=== PATIENT | male | born 1940 | race Caucasian/White ===

== ENCOUNTER 2018-12-23 15:22 | Inpatient (IN) | payer BC ==
[~2018-12-23] VITALS: Ht 167.6 cm; Wt 79.4 kg
--- NOTE | 2018-12-23 15:18 | Emergency Room Report ---
History of Present Illness General Chief Complaint: General Complaint Source: Patient, EMS Present Illness HPI Patient is a 78-year-old male brought in by EMS after decreased blood sugar. Patient was noted to have slightly low blood pressure by EMS. Patient was noted to have prior history of hypertension as well as type 2 diabetes. He had been noted to have some recent lower extremity infection. Patient denies any current symptoms. He was noted to have atrial fibrillation on EKG with EMS. Patient denies any current complaints. Patient was sent in from a board and care. Allergies: Coded Allergies: No Known Allergies (Unverified , 12/23/18) Patient History Past Medical History: see triage record Reviewed Nursing Documentation: PMH: Agreed; PSxH: Agreed Review of Systems All Other Systems: negative except mentioned in HPI Physical Exam Vital Signs Date Time Temp Pulse Resp B/P (MAP) Pulse Ox O2 Delivery O2 Flow Rate FiO2 12/23/18 15:10 98.1 110 18 118/72 100 Room Air Sp02 EP Interpretation: reviewed, normal General Appearance: normal inspection, well appearing, no apparent distress, alert, GCS 15 Head: atraumatic ENT: normal ENT inspection, hearing grossly normal, normal voice Neck: normal inspection, full range of motion, supple, no bony tend Respiratory: normal inspection, lungs clear, normal breath sounds, no respiratory distress, no retraction, no wheezing Cardiovascular #1: regular rate, rhythm, no edema Gastrointestinal: normal inspection, normal bowel sounds, non tender, soft, no guarding, no hernia Genitourinary: no CVA tenderness Musculoskeletal: normal inspection, back normal, normal range of motion Neurologic: normal inspection, alert, oriented x3, responsive, speech normal Psychiatric: normal inspection, judgement/insight normal, mood/affect normal Skin: no rash, other - left leg erythema,slight edema Medical Decision Making Diagnostic Impression: Primary Impression: Atrial fibrillation with RVR Additional Impressions: Urinary tract infection Pneumonia CHF (congestive heart failure) ER Course Patient presented for generalized weakness. Differential diagnosis included was not limited to anemia, urinary tract infection, electrolyte abnormality, hypothyroidism, myocardial infarction, myasthenia gravis, dehydration, among others. Because of complexity of patient's case laboratory testing and imaging studies were ordered. EKG interpreted by me showed atrial fibrillation with a rate of [address] or T wave changes.Patient was given IV antibiotics as well as Lasix. He was given IV digoxin due to atrial fibrillation with rapid ventricular response. Dr. Nagel was contacted for inpatient management due to primary physician. Labs Test 12/23/18 15:55 12/23/18 16:30 White Blood Count 9.5 K/UL (4.8-10.8) Red Blood Count 3.85 M/UL (4.70-6.10) Hemoglobin 11.3 G/DL (14.2-18.0) Hematocrit 33.6 % (42.0-52.0) Mean Corpuscular Volume 87 FL (80-99) Mean Corpuscular Hemoglobin 29.5 PG (27.0-31.0) Mean Corpuscular Hemoglobin Concent 33.7 G/DL (32.0-36.0) Red Cell Distribution Width 13.6 % (11.6-14.8) Platelet Count 261 K/UL (150-450) Mean Platelet Volume 5.7 FL (6.5-10.1) Neutrophils (%) (Auto) 70.1 % (45.0-75.0) Lymphocytes (%) (Auto) 19.0 % (20.0-45.0) Monocytes (%) (Auto) 8.2 % (1.0-10.0) Eosinophils (%) (Auto) 1.9 % (0.0-3.0) Basophils (%) (Auto) 0.8 % (0.0-2.0) Sodium Level 141 MMOL/L (136-145) Potassium Level 3.0 MMOL/L (3.5-5.1) Chloride Level 97 MMOL/L (98-107) Carbon Dioxide Level 39 MMOL/L (21-32) Anion Gap 5 mmol/L (5-15) Blood Urea Nitrogen 10 mg/dL (7-18) Creatinine 1.1 MG/DL (0.55-1.30) Estimat Glomerular Filtration Rate mL/min (>60) Glucose Level 138 MG/DL (74-106) Lactic Acid Level 1.40 mmol/L (0.4-2.0) Calcium Level 8.4 MG/DL (8.5-10.1) Phosphorus Level 3.8 MG/DL (2.5-4.9) Magnesium Level 1.9 MG/DL (1.8-2.4) Total Bilirubin 0.5 MG/DL (0.2-1.0) Aspartate Amino Transf (AST/SGOT) 35 U/L (15-37) Alanine Aminotransferase (ALT/SGPT) 28 U/L (12-78) Alkaline Phosphatase 77 U/L (46-116) Total Creatine Kinase 232 U/L (26-308) Creatine Kinase MB 3.2 NG/ML (0.0-3.6) Creatine Kinase MB Relative Index 1.3 Troponin I 0.000 ng/mL (0.000-0.056) Pro-B-Type Natriuretic Peptide 1730 pg/mL (0-125) Total Protein 7.3 G/DL (6.4-8.2) Albumin 2.8 G/DL (3.4-5.0) Globulin 4.5 g/dL Albumin/Globulin Ratio 0.6 (1.0-2.7) Urine Color [place] Urine Appearance Clear Urine pH 9 (4.5-8.0) Urine Specific [place] 1.010 (1.005-1.035) Urine Protein 2+ (NEGATIVE) Urine Glucose (UA) Negative (NEGATIVE) Urine Ketones Negative (NEGATIVE) Urine Blood Negative (NEGATIVE) Urine Nitrite Negative (NEGATIVE) Urine Bilirubin Negative (NEGATIVE) Urine Ictotest Negative (NEGATIVE) Urine Urobilinogen 1 MG/DL (0.0-1.0) Urine Leukocyte Esterase 1+ (NEGATIVE) Urine RBC 0 /HPF (0 - 0) Urine WBC 5-10 /HPF (0 - 0) Urine Squamous Epithelial Cells Occasional /LPF Urine Bacteria Few /HPF (NONE) Urine Mucus Moderate /LPF (NONE/OCC) EKG Diagnostic Results Rate: tachycardiac - 114. Rhythm: other - afib ST Segments: no acute changes Last Vital Signs Date Time Temp Pulse Resp B/P (MAP) Pulse Ox O2 Delivery O2 Flow Rate FiO2 12/23/18 15:10 98.1 110 18 118/72 100 Room Air Status: improved Disposition: ADMITTED INPATIENT Condition: Stable Siva Onofre MD Dec 23, 2018 15:18
[2018-12-23 15:30] VITALS: BP 118/72
--- NOTE | 2018-12-23 15:30 | NUR ---
ED Nurse Note: Pt brought in to ER from [facility] due to general weakness. per EMS pt's BS went down to 81 mg/dl yesterday and demonstrated general weakness since yesterday. pt aao x 4 and able to pivot weight to transfer from rney to bed. calm and cooperative. pt is at room air and skin clean and intact. Rt toes all amputated and 2 of Lt toes were amputated. site clean and intact. pt urinated at urinal standing up.
--- NOTE | 2018-12-23 15:40 | NUR ---
ED Nurse Note: Pt reported improved pain 5/10 but blood pressure still high 210/92. ERMD made aware.
--- NOTE | 2018-12-23 15:40 | NUR ---
Note joan in EDM - 12/23/18 at 1554 by [email or web address] ED Nurse Note: Pt reported improved pain 01/26 but blood pressure still high 210/92. ANGELA made aware.
--- NOTE | 2018-12-23 15:56 | Diagnostic Imaging Report ---
EXAM: XR Chest, 1 View CLINICAL HISTORY: SOB TECHNIQUE: Frontal view of the chest. COMPARISON: No relevant prior studies available. FINDINGS: Lungs: Patchy infiltrates and irregular opacities bilaterally. Coexisting pleural disease/pleural calcification not excluded. Pleural space: Unremarkable. No pneumothorax. Heart: Large cardiac silhouette. Mediastinum: Unremarkable. Bones/joints: No acute fracture. IMPRESSION: Patchy infiltrates and irregular opacities bilaterally. Coexisting pleural disease/pleural calcification not excluded.
[2018-12-23] MEDS ORDERED: Cefepime HCl 1 GM in D5W 55 ML IVPB ONE (16:15)
[2018-12-23 16:22] LABS: BASOPHILS % (AUTO) 0.8 % (0.0-2.0); EOSINOPHILS % (AUTO) 1.9 % (0.0-3.0); HEMATOCRIT 33.6 % (42.0-52.0); HEMOGLOBIN 11.3 G/DL (14.2-18.0); MEAN CORPUSCULAR VOLUME 87 FL (80-99); MONOCYTES % (AUTO) 8.2 % (1.0-10.0); NEUTROPHILS % (AUTO) 70.1 % (45.0-75.0); PLATELET COUNT 261 K/UL (150-450); RED BLOOD COUNT 3.85 M/UL (4.70-6.10); RED CELL DISTRIBUTION WIDTH 13.6 % (11.6-14.8); WHITE BLOOD COUNT 9.5 K/UL (4.8-10.8)
[2018-12-23 16:26] LABS: ANION GAP 5 mmol/L (5-15); BLOOD UREA NITROGEN 10 mg/dL (7-18); CALCIUM 8.4 MG/DL (8.5-10.1); CARBON DIOXIDE 39 MMOL/L (21-32); CHLORIDE 97 MMOL/L (98-107); CREATININE 1.1 MG/DL (0.55-1.30); SODIUM 141 MMOL/L (136-145)
[2018-12-23] MEDS ORDERED: Digoxin 0.5mg/2ml Inj IVP ONE (16:30)
[2018-12-23 16:39] LABS: ALANINE AMINOTRANSFERASE 28 U/L (12-78); ALBUMIN 2.8 G/DL (3.4-5.0); ALBUMIN/GLOBULIN RATIO 0.6 (1.0-2.7); ALKALINE PHOSPHATASE 77 U/L (46-116); ASPARTATE AMINO TRANSFERASE 35 U/L (15-37); BILIRUBIN,TOTAL 0.5 MG/DL (0.2-1.0); CKMB 3.2 NG/ML (0.0-3.6); CREATINE KINASE 232 U/L (26-308); PHOSPHORUS 3.8 MG/DL (2.5-4.9)
[2018-12-23 16:47] LABS: APPEARANCE,URINE CLEAR; BILIRUBIN, URINE NEGATIVE (NEGATIVE); COLOR,URINE AMBER; GLUCOSE, URINE (UA) NEGATIVE (NEGATIVE); KETONES,URINE NEGATIVE (NEGATIVE); LEUKOCYTE ESTERASE ,URINE 1+ (NEGATIVE); NITRITE,URINE NEGATIVE (NEGATIVE); PH,URINE 9 (4.5-8.0); PROTEIN,URINE 2+ (NEGATIVE); UROBILINOGEN,URINE 1 MG/DL (0.0-1.0)
[2018-12-23 17:30] VITALS: BP 107/79
[2018-12-23] MEDS ORDERED: LOSARTAN POTAS100 MG ORAL (18:02)
[2018-12-23] MEDS ORDERED: OMEGA-3 ACID ETH1 GM PO (18:02)
[2018-12-23] MEDS ORDERED: CLOPIDOGREL75 MG ORAL (18:02)
[2018-12-23] MEDS ORDERED: FAMOTIDINE20 MG ORAL (18:02)
[2018-12-23] MEDS ORDERED: AMLODIPINE BESYL5 MG ORAL (18:02)
[2018-12-23] MEDS ORDERED: DOCUSATE SODIU100 MG ORAL (18:02)
[2018-12-23] MEDS ORDERED: GLUCAGON EMERGEN1 MG IJ (18:02)
[2018-12-23] MEDS ORDERED: LEVOXYL100 MCG ORAL (18:02)
[2018-12-23] MEDS ORDERED: KLONOPIN1 MG ORAL (18:02)
[2018-12-23] MEDS ORDERED: TRAZODONE HCL100 MG ORAL (18:02)
[2018-12-23] MEDS ORDERED: HUMALOG100 UNIT/3 SUBQ ×2 (18:02)
[2018-12-23] MEDS ORDERED: ATORVASTATIN CA20 MG ORAL (18:02)
[2018-12-23] MEDS ORDERED: GABAPENTIN300 MG ORAL (18:02)
[2018-12-23] MEDS ORDERED: METFORMIN HCL1000 M2 ORAL (18:02)
[2018-12-23] MEDS ORDERED: LORATADINE10 M2 PO (18:02)
[2018-12-23] MEDS ORDERED: FLOMAX0.4 MG ORAL (18:02)
[2018-12-23] MEDS ORDERED: NORCO 5-325 TA1 EACH ORAL (18:02)
[2018-12-23] MEDS ORDERED: PAROXETINE HCL20 MG PO (18:02)
[2018-12-23] MEDS ORDERED: LANTUS SOL100 UNIT/1 SUBQ (18:02)
[2018-12-23] MEDS ORDERED: BANOPHEN25 MG PO (18:02)
--- NOTE | 2018-12-23 18:50 | NUR ---
ED Nurse Note: Started oxygen at 4L/min. RA 90%, at 4L/min 94%.
--- NOTE | 2018-12-23 19:06 | NUR ---
HAND-OFF: Report given to HARINDER Oliver. report will be given after accepting doctor assgined. belonging list and swabs done.
--- NOTE | 2018-12-23 19:15 | NUR ---
ED Nurse Note: received report from HARINDER Ma and assumed care, pt resting at this time, attempted giving report to HARINDER Fleming, receiving Rn unable to take report, will try again.
[2018-12-23 19:17] VITALS: BP_SYST 110; BP_SYST 99; BP_DIAS 59; BP_DIAS 73
--- NOTE | 2018-12-23 19:58 | NUR ---
ED Nurse Note: PT O2SAT 88%, ERMD NOTIFIED REGARDING PT'S CONDITION, NO SX RESP DISTRESS AT THIS TIME, CONTINUE O2=4L/MIN VIA NC.
--- NOTE | 2018-12-23 20:03 | NUR ---
ED Nurse Note: REPORT GIVEN TO RN NADINE, PT TRANSFERRING TO TELE FLOOR.
[2018-12-23 20:04] VITALS: BP 110/73
[2018-12-23] MEDS ORDERED: Milk of Magnesia 30ml Ud ORAL PRN (20:15)
--- NOTE | 2018-12-23 20:58 | NUR ---
ED Nurse Note: PT TRANSFERRED TO TELE, ALL BELONGINGS SENT W/ PT, VSS, SINUS TACH ON MARKETING RESEARCH ANALYST, ENDORSED CARE TO ACCESS SERVICES LIBRARIAN NADINE.
[2018-12-23 21:00] VITALS: BP 106/72
[2018-12-23] MEDS ORDERED: Nitroglycerin Subl 0.4mg tab SL PRN (21:00)
[2018-12-23] MEDS ORDERED: Aspirin Baby 81mg ORAL SCH (21:00)
[2018-12-23] MEDS: Levemir Flexpen SUBQ SCH (21:00)
--- NOTE | 2018-12-23 21:45 | NUR ---
Report received from HARINDER Dutton. Patient is in stable condition lying comfortably in bed. Belongings verified and playground monitor applied. Bed in the lowest position, bed brakes engaged, side rails up x3 and call light within reach.
[2018-12-23] MEDS: TraZODone 100mg tab ORAL SCH (23:07)
[2018-12-23] MEDS: Atorvastatin 20mg tab ORAL SCH (23:09)
[2018-12-23] MEDS: Metoprolol 25mg tab ORAL SCH (23:15)
[2018-12-23] MEDS: Heparin 5000 units/ml inj SUBQ SCH (23:15)
[2018-12-24] VITALS (7 sets, daily range): BP systolic 97–155; BP diastolic 60–100
[2018-12-24] MEDS ORDERED: cefTRIAXone 1 GM in D5W 55 ML IVPB SCH (01:45)
[2018-12-24] MEDS: HYDROcodone/Acetamin 5/325 tab ORAL SCH ×4 (06:00→18:46)
--- NOTE | 2018-12-24 07:40 | NUR ---
HAND-OFF: Report given to HARINDER Tobar.
[2018-12-24 07:57] LABS: EOSINOPHILS % (AUTO) 2.1 % (0.0-3.0); HEMATOCRIT 40.3 % (42.0-52.0); HEMOGLOBIN 12.9 G/DL (14.2-18.0); LYMPHOCYTES % (AUTO) 25.8 % (20.0-45.0); MEAN CORPUSCULAR VOLUME 91 FL (80-99); MONOCYTES % (AUTO) 8.8 % (1.0-10.0); NEUTROPHILS % (AUTO) 62.3 % (45.0-75.0); PLATELET COUNT 308 K/UL (150-450); RED BLOOD COUNT 4.44 M/UL (4.70-6.10); WHITE BLOOD COUNT 9.1 K/UL (4.8-10.8)
[2018-12-24 08:11] LABS: ANION GAP 4 mmol/L (5-15); BLOOD UREA NITROGEN 10 mg/dL (7-18); CALCIUM 8.9 MG/DL (8.5-10.1); CARBON DIOXIDE 36 MMOL/L (21-32); CHLORIDE 99 MMOL/L (98-107); CREATININE 1.1 MG/DL (0.55-1.30); POTASSIUM 4.2 MMOL/L (3.5-5.1); SODIUM 138 MMOL/L (136-145)
--- NOTE | 2018-12-24 08:11 | NUR ---
NURSE NOTES: Received report from Yennifer PIZANO. Pt just finished breakfast and talkative. Pt on library monitor no signs of distress at this time. Bed locked and in lowest position. Call light right next to pt. Will continue plan of care.
[2018-12-24] MEDS: PARoxetine 20mg tab ORAL SCH (09:00)
[2018-12-24] MEDS: Losartan 50mg tab ORAL SCH (10:38)
[2018-12-24] MEDS: Docusate 100mg cap ORAL SCH ×2 (10:38→18:44)
[2018-12-24] MEDS: Aspirin Baby 81mg ORAL SCH (10:38)
[2018-12-24] MEDS: Tamsulosin 0.4mg cap ORAL SCH (10:39)
[2018-12-24] MEDS: Metoprolol 25mg tab ORAL SCH ×2 (10:40→20:24)
[2018-12-24] MEDS: Heparin 5000 units/ml inj SUBQ SCH (10:42)
[2018-12-24] MEDS ORDERED: Azithromycin 250mg tab ORAL SCH (12:30)
--- NOTE | 2018-12-24 13:14 | NUR ---
NURSE NOTES: vancomycin not in pyxis. Called pharmacy
[2018-12-24] MEDS: Eliquis 2.5mg tablet ORAL SCH ×2 (13:23→18:45)
--- NOTE | 2018-12-24 13:42 | NUR ---
confirmed with trish Granados, that the following meds need to be held until further notice: (amlodipine, benadryl, Gabapentin, lantus, loratidine, metformin, and paxil). Also ok to give Digoxin and rocephin and heparin as well as continuing IV antibiotics from the ER.
[2018-12-24] MEDS: Vancomycin 1.5gm Premix IVPB SCH (14:29)
--- NOTE | 2018-12-24 16:43 | NUR ---
CASE MANAGEMENT: REVIEW 78/M [facility]Huber [facility] CC: HYPOGLYCEMIA SI: A-FIB . PNA . CHF. UTI T 99.3 HR 120 RR 22 BP 157/92 SAT 92% NC/4L K 3.0 BNP 1730 IS: CEFEPIME IV X1 DIGOXIN IV X1 K-DUR PO X1 LASIX IV X1 FLAGYL IV X1 NS IVF BOLUS X1 PATIENT ADMITTED TO TELEMETRY UNIT 12/23/2018 [facility]
--- NOTE | 2018-12-24 16:45 | History and Physical Report ---
DATE OF ADMISSION: 12/23/2018 CHIEF COMPLAINT AND REASON FOR HOSPITALIZATION: The patient admitted with hypoglycemia, pulmonary infiltrates, atrial fibrillation with rapid ventricular response. HISTORY OF PRESENT ILLNESS: I am seeing the patient on behalf of Dr. Mendoza who is off today. He was apparently brought to the hospital by EMS after hypoglycemic episode and transient hypotension by the EMS. The patient has a history of type 2 diabetes, on insulin and peripheral vascular disease, status post amputation, hypertension. He walks with a walker. He is found to have patchy infiltrates on chest x-ray, possible CHF, atrial fibrillation with rapid ventricular response, and a hypoglycemic episode. He is only a fair historian. ALLERGIES: None known. MEDICATIONS: At the facility include Klonopin 1 mg b.i.d., gabapentin 300 mg b.i.d., tamsulosin 0.4 mg at bedtime, Plavix 75 mg daily, famotidine 20 mg daily, levothyroxine 100 mcg daily, losartan 100 mg daily, metformin 1000 mg daily, trazodone 100 mg at bedtime, Paxil 20 mg daily, Lipitor 20 mg daily, amlodipine 5 mg daily, [place]-3 1 g b.i.d., Claritin 10 mg daily, Banophen 25 mg daily, [place] 5 every 6 hours, Humalog 10 units in the morning and sliding scale before meals, Lantus 40 units at bedtime, glucagon p.r.n., BSS 100 mg b.i.d. 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 HABITS: He smoked and quit many years ago. No alcohol or drugs. SOCIAL HISTORY: He is single. He worked in [employer]. Surgeries include amputations as noted above and left knee surgery as noted above. SYSTEM REVIEW: HEAD, EYES, EARS, NOSE, AND THROAT: He is legally blind, but has some vision. Hearing is good. ENDOCRINE: Diabetes and hypothyroidism as above. PULMONARY: No known asthma or TB. Mild dyspnea on exertion. CARDIAC: No definite IN or angina. It is not clear if he has had atrial fibrillation chronically or this is acute. GASTROINTESTINAL: No GI bleeding or ulcer. GENITOURINARY: No dysuria, hematuria, or kidney stones. No history of prostate problems. NEUROLOGIC: No CVA or syncope. MUSCULOSKELETAL: He uses a walker for stability. PHYSICAL EXAMINATION: GENERAL: The patient is an alert man, sitting at the edge of bed. VITAL SIGNS: Temperature 98.2, pulse 108, respirations 19, blood pressure 145/90. HEAD, EYES, EARS, NOSE, THROAT: He has poor vision. Ocular motion intact in all directions. Oral mucosa moist. NECK: No adenopathy or thyroid enlargement. LUNGS: Clear. HEART: Rhythm is atrial fibrillation. I hear no murmur. ABDOMEN: Soft without organomegaly or masses. EXTREMITIES: No edema. Amputation of all toes of the right foot and the second and third toe of the left foot. He has dry scaly skin on both legs and has mild cellulitis on the left lower extremity. NEUROLOGIC: He is alert and oriented. Cranial nerves are intact. No focal findings. PERTINENT LABORATORY DATA: White count 9.1, hemoglobin is 12.9. Electrolytes are significant for CO2 of 39 and 36 with a BUN 10, creatinine 1.1, glucose 138, 153. Lactic acid 1.4. Initial troponin negative. BNP 1730. Albumin is 2.8. Urine shows 2+ proteinuria, 5 to 10 white cells per high-power field. IMPRESSION: 1. Diabetes with episodes of hypoglycemia. 2. Atrial fibrillation with rapid ventricular response. 3. Pulmonary infiltrates, pneumonia versus pleural effusion, CHF. 4. CHF, likely diastolic. 5. Incomplete database. 6. Hypertension with episodes of hypotension recently. 7. Hyperlipidemia. PLAN: The patient's cardiac medications will be adjusted to control his rate and CHF. Diabetes medications will be adjusted. We will start him on appropriate antibiotics for cellulitis and healthcare-acquired pneumonia. His condition is complex and will require several days of hospitalization. Josue Lay M.D. DR: TOI JOB#: [id number] CC:
--- NOTE | 2018-12-24 17:46 | NUR ---
NURSE NOTES: per pharmacy they have tried to get a hold of Dr. Granados in regards to of which antibiotic to use for this pt. Per pharmacy usually Zosyn is not given in combination with Ceftriaxone because they work almost the same. Paged Dr. Coelho as well at 5;30.
--- NOTE | 2018-12-24 17:49 | NUR ---
NURSE NOTES: per [facility] ok to give Addendum: 12/24/18 at 1753 by Ekaterina Jim RN Per May at pharmacy it is ok to run Ceftriaxone late because Zosyn is running now. Pharmacy is still trying to find out if Dr. patiño would like both antibiotics to run since they both work the same.
--- NOTE | 2018-12-24 18:35 | NUR ---
NURSE NOTES: per doctor haroon Nuñez and continue with ceftriaxone.
[2018-12-24] MEDS: cefTRIAXone 1 GM in D5W 55 ML IVPB SCH (18:44)
--- NOTE | 2018-12-24 19:20 | NUR ---
NURSE NOTES: Received patient from HARINDER Tobar. Patient on bed asleep with oxygen via NC at 2L. Cellulities on BLE noted. Redness and dryness. Symes amputation on the right. Two toes amputated on the left. Unsteady but able to stand and ambulate with assistance. Assisted patient to the restroom. Noted have some difficulty voiding but denies pain. Confusion noted with uncooperativeness towards patient care and safety. Reoriented patient. Call light within reach. Bed alarm on.
[2018-12-24] MEDS: TraZODone 100mg tab ORAL SCH (20:24)
[2018-12-24] MEDS: Atorvastatin 20mg tab ORAL SCH (20:24)
[2018-12-24] MEDS: Levemir Flexpen SUBQ SCH (20:31)
[2018-12-24] MEDS ORDERED: Tubing IV Secondary IV ONE (20:37)
[2018-12-24] MEDS ORDERED: NS 500ML ONE (20:37)
--- NOTE | 2018-12-24 20:42 | NUR ---
HAND-OFF: Report given to Rebecca PIZANO.
--- NOTE | 2018-12-24 21:55 | NUR ---
NURSE NOTES: Patient ambulated to the restroom with assistance. Bed alarm on. Patient is confused and tries to get up by himself. AOx2. Skin intact. Not in distress.
--- NOTE | 2018-12-24 23:28 | NUR ---
NURSE NOTES: Patient got out of bed at this time, stated "Where is my dinner?" Explained to patient the time and ambulated to the restroom. Assisted patient along with charge nurse. Patient eventually got agitated and uncooperative. Explained patient to go back to bed for safety. Patient refused [place] 5/325mg at this time stating "it ruining my day to day if I take that pill." Back rub provided to calm patient. VS stable at this time.
--- NOTE | 2018-12-25 02:53 | NUR ---
NURSE NOTES: Specimen for MRSA nares has been collected. Sent to lab.
[2018-12-25 04:00] VITALS: BP 128/76
--- NOTE | 2018-12-25 04:33 | NUR ---
NURSE NOTES: EKG done. Filed in the chart.
--- NOTE | 2018-12-25 04:40 | NUR ---
NURSE NOTES: Patient is confused asking for breakfast at this time. Reoriented patient. Assisted ambulating to the restroom.
--- NOTE | 2018-12-25 05:17 | NUR ---
NURSE NOTES: Patient ambulated to restroom with assistance. Not in distress.
[2018-12-25] MEDS: HYDROcodone/Acetamin 5/325 tab ORAL SCH ×5 (05:40→23:39)
--- NOTE | 2018-12-25 07:23 | NUR ---
HAND-OFF: Report given to HARINDER Tobar.
[2018-12-25 07:58] LABS: BASOPHILS % (AUTO) 0.8 % (0.0-2.0); EOSINOPHILS % (AUTO) 3.5 % (0.0-3.0); HEMATOCRIT 38.1 % (42.0-52.0); HEMOGLOBIN 12.2 G/DL (14.2-18.0); LYMPHOCYTES % (AUTO) 31.4 % (20.0-45.0); MEAN CORPUSCULAR VOLUME 90 FL (80-99); MONOCYTES % (AUTO) 9.8 % (1.0-10.0); NEUTROPHILS % (AUTO) 54.6 % (45.0-75.0); PLATELET COUNT 252 K/UL (150-450); RED BLOOD COUNT 4.22 M/UL (4.70-6.10); RED CELL DISTRIBUTION WIDTH 14.1 % (11.6-14.8); WHITE BLOOD COUNT 6.3 K/UL (4.8-10.8)
--- NOTE | 2018-12-25 07:58 | NUR ---
NURSE NOTES: Received report from Rebecca PIZANO, pt has been very active all night. Pt is now eating breakfast in bed on security monitor with no signs of distress. Bed in lowest position locked. call light right next to him.
[2018-12-25 08:00] VITALS: BP 111/53
[2018-12-25 08:29] LABS: ANION GAP 7 mmol/L (5-15); BLOOD UREA NITROGEN 11 mg/dL (7-18); CALCIUM 9.2 MG/DL (8.5-10.1); CARBON DIOXIDE 30 MMOL/L (21-32); CHLORIDE 102 MMOL/L (98-107); POTASSIUM 4.5 MMOL/L (3.5-5.1); SODIUM 139 MMOL/L (136-145)
[2018-12-25] MEDS: PARoxetine 20mg tab ORAL SCH (09:00)
--- NOTE | 2018-12-25 09:03 | Cardiology Progress Note ---
Assessment/Plan Assessment/Plan increase metoprolol to 50 bid, consider to d/c plavix and aspirin and continue eliquis 5 mg bid. thank you Subjective Subjective [id number] Objective Last 24 Hour Vital Signs Date Time Temp Pulse Resp B/P (MAP) Pulse Ox O2 Delivery O2 Flow Rate FiO2 12/25/18 08:00 98.0 75 18 111/53 (72) 100 12/25/18 04:00 98.0 73 19 128/76 (93) 93 12/25/18 03:22 73 12/25/18 00:00 80 12/24/18 23:39 98.1 82 19 137/73 (94) 95 12/24/18 23:28 68 12/24/18 21:00 Nasal Cannula 2.0 12/24/18 20:24 73 115/100 12/24/18 20:00 97.5 73 19 115/100 (105) 95 12/24/18 19:40 73 12/24/18 16:00 98.5 82 20 97/60 (72) 97 12/24/18 16:00 71 12/24/18 13:35 98.2 12/24/18 12:00 103 12/24/18 12:00 99.1 107 20 105/69 (81) 93 12/24/18 10:40 108 145/90 12/24/18 10:39 108 12/24/18 10:38 145/90 Intake and Output 12/24/18 12/25/18 19:00 07:00 Intake Total 240 ml 120 ml Output Total 450 ml 1100 ml Balance -210 ml -980 ml Intake Oral 240 ml 120 ml Output Urine Total 450 ml 1100 ml Laboratory Tests Test 12/25/18 06:18 White Blood Count 6.3 K/UL (4.8-10.8) Red Blood Count 4.22 M/UL (4.70-6.10) L Hemoglobin 12.2 G/DL (14.2-18.0) L Hematocrit 38.1 % (42.0-52.0) L Mean Corpuscular Volume 90 FL (80-99) Mean Corpuscular Hemoglobin 29.0 PG (27.0-31.0) Mean Corpuscular Hemoglobin Concent 32.0 G/DL (32.0-36.0) Red Cell Distribution Width 14.1 % (11.6-14.8) Platelet Count 252 K/UL (150-450) Mean Platelet Volume 5.9 FL (6.5-10.1) L Neutrophils (%) (Auto) 54.6 % (45.0-75.0) Lymphocytes (%) (Auto) 31.4 % (20.0-45.0) Monocytes (%) (Auto) 9.8 % (1.0-10.0) Eosinophils (%) (Auto) 3.5 % (0.0-3.0) H Basophils (%) (Auto) 0.8 % (0.0-2.0) Sodium Level 139 MMOL/L (136-145) Potassium Level 4.5 MMOL/L (3.5-5.1) Chloride Level 102 MMOL/L (98-107) Carbon Dioxide Level 30 MMOL/L (21-32) Anion Gap 7 mmol/L (5-15) Blood Urea Nitrogen 11 mg/dL (7-18) Creatinine 1.0 MG/DL (0.55-1.30) Estimat Glomerular Filtration Rate mL/min (>60) Glucose Level 65 MG/DL (74-106) L Calcium Level 9.2 MG/DL (8.5-10.1) Microbiology Date/Time Source Procedure Growth Status 12/23/18 16:00 Blood Blood Culture - Preliminary NO GROWTH AFTER 24 HOURS Resulted 12/23/18 15:45 Blood Blood Culture - Preliminary NO GROWTH AFTER 24 HOURS Resulted 12/23/18 18:30 Rectum Received Anita Whitt MD Dec 25, 2018 09:03
--- NOTE | 2018-12-25 09:58 | NUR ---
MRI LEFT FOOT COMPLETED.
[2018-12-25 11:20] VITALS: BP 148/86
[2018-12-25] MEDS: Azithromycin 250mg tab ORAL SCH (11:23)
[2018-12-25] MEDS: Metoprolol Tartrate 50mg tab ORAL SCH ×2 (11:24→21:00)
[2018-12-25] MEDS: Eliquis 2.5mg tablet ORAL SCH ×2 (11:24→17:43)
[2018-12-25] MEDS: Tamsulosin 0.4mg cap ORAL SCH (11:25)
[2018-12-25] MEDS: Aspirin Baby 81mg ORAL SCH (11:25)
[2018-12-25] MEDS: Docusate 100mg cap ORAL SCH ×2 (11:25→17:43)
--- NOTE | 2018-12-25 11:43 | NUR ---
pt. 9am med given late pt went down stairs fo MRI of L foot. also Lozartan missing in pyxis, so it was not given
[2018-12-25 12:00] VITALS: BP 109/76
--- NOTE | 2018-12-25 13:26 | Diagnostic Imaging Report ---
Indication: Open wound ball of foot and one fourth toe Technique: Coronal, axial, and sagittal T1 FSE and FSE STIR images obtained of the forefoot Comparison: none Findings: A marker lam the site of a soft tissue ulcer the plantar surface below the heads of the third and fourth metatarsals. Patient is status post amputation of the second and third digits at the level of the metatarsophalangeal joints. There is subtle increased STIR and decreased T1 signal within the second metatarsal shaft. No abnormal marrow signal is seen adjacent to the soft tissue ulcer; the third metatarsal and fourth digit demonstrate normal marrow signal. There is some increased STIR and decreased T1 marrow signal in a somewhat linear configuration involving the medial cuneiform and the navicular. There is mild soft tissue edema involving the first digit the first webspace, and to a slight extent the third webspace. There is also subcutaneous fat edema which is circumferential and there is edema of the tendinous compartments both dorsally and plantar. No discrete fluid collections to suggest abscess demonstrated. A few small gas bubbles are seen in the soft tissues anterior to the second metatarsal head. Impression: Equivocal abnormal T1 and T2 marrow signal involving the shaft of the second metatarsal, raises concern for but is not conclusive for osteomyelitis No other findings to suggest acute osteomyelitis are demonstrated. Abnormal marrow signal in the medial cuneiform and navicular. 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 Otherwise, this raises concern for infection with gas-forming organism Fairly extensive soft tissue edema. This could be related to cellulitis or could be vasogenic in nature. No discrete fluid collection to suggest abscess demonstrated
[2018-12-25] MEDS: Losartan 50mg tab ORAL SCH (13:47)
--- NOTE | 2018-12-25 13:49 | NUR ---
NURSE NOTES: pt refused Losartan.
--- NOTE | 2018-12-25 13:53 | NUR ---
NURSE NOTES: Vancomycin due at 1300 will be given once pt comes back from MRI.
--- NOTE | 2018-12-25 13:58 | NUR ---
ST NOTE: SPEECH/LANGUAGE/COGNITION EVAL RECEIVED SPEECH/LANGUAGE/COGNITION EVAL CHART REVIEWED PRIOR THE EVALUATION PT IS A 78-YEAR-OLD MALE WHO WAS ADMITTED FOR A-FIB AND PNA. PT HAS HISTORY OF DMII, PSYCH(ANXIETY DISORDER AND DEPRESSION), COPD, HTN. PER PT'S ADMISSION X-RAY: PATCHY INFILTRATE AND IRREGULAR OPACITIES BILATERALLY. PLOF: PT RESIDES AT [facility]. SPEECH/LANGUAGE/COGNITION: PT WAS ABLE TO EXPRESS WANTS AND NEEDS VERBALLY. PT ORIENTED X 2, UNABLE TO RECALL THE NAME OF THE HOSPITAL. PT SEEMS HAVING POOR INSIGHT AND SAFE JUDGEMENT; AND ALSO REDUCED SHORT-TERM MEMORY RELATED TO HIS MEDICAL HISTORY. PER PT, HE IS LEGALLY BLINDED, BUT PER NURSING STAFF, PT WAS ABLE TO GO TO BATHROOM BY HIMSELF. SWALLOW SCREENING: THIN LIQUID ONLY PT WAS UNABLE TO PARTICIPATE THE HUNGRY HORSE SWALLOW PROTOCOL. PT ONLY TOOK A SIP OF THIN LIQUIDS MILDLY INCREASED ORAL TRANSIT TIME AND OROPHARYNGEAL TRANSIT TIME, FAIR LARYNGEAL ELEVATION, WET VOCAL QUALITY AND DELAYED COUGH WAS NOTED. RECOMMENDATIONS: 1. CONTINUE FURTHER EVALUATION RE: COGNITION. 2. SWALLOW EVAL AND MODIFIED BARIUM SWALLOW STUDY IF NEEDED. 3. SPEECH THERAPY AND MANAGEMENT. D/W RN, ANH AYERS, ROBBY.
--- NOTE | 2018-12-25 14:30 | NUR ---
CASE MANAGEMENT:REVIEW 12/25/18 SI: A-DIVYA . PNA . CHF. UTI 98.0 117 18 148/86 100% ON RA H/H-12.2/38.1 IS: IV ROCEPHIN Q24 IV VANCOMYCIN Q24 AZITHROMYCIN PO Q24 IV LASIX Q12 LOPRESSOR PO Q12 ELIQUIS PO BID ASA PO QD PLAVIX PO QD DIGOXIN PO QD : TELEMETRY STATUS DCP: FROM [facility]
--- NOTE | 2018-12-25 14:52 | NUR ---
*-* INSURANCE *-* ALL CLINICALS AND REVIEWS HAVE BEEN FAXED TO: [facility] PLEASE FAX THE REVIEW/CLINICAL P- [phone] X [phone] F- [phone]
[2018-12-25] MEDS: Vancomycin 1.5gm Premix IVPB SCH (15:26)
[2018-12-25 16:00] VITALS: BP 101/58
--- NOTE | 2018-12-25 16:15 | Consultation ---
DATE OF CONSULTATION: 12/25/2018 CARDIOLOGY CONSULTATION IDENTIFICATION: This is a 78-year-old male. REASON FOR EVALUATION: Atrial fibrillation. HISTORY OF PRESENT ILLNESS: The patient was brought from [facility] and [facility] with multiple complaints including low blood sugar and he also had an infiltrate on his chest x-ray and atrial fibrillation. The patient has known hypertension, diabetes, and peripheral vascular disease, history of toe amputation. He also has diabetes. He denies shortness of breath. He has depression and other psychiatric illnesses include possible depression and dementia. MEDICATIONS: Reviewed. He is on antibiotics. He is on digoxin, Eliquis, Plavix, and aspirin. HABITS: He says he quit many years ago. There is no alcohol or drug abuse. SOCIAL HISTORY: He lives at a [facility] and [facility]. He is partially dependent. REVIEW OF SYSTEMS: Significant for decreased vision, very poor sleep, paranoid ideations. PHYSICAL EXAMINATION: GENERAL: This is elderly man. He is sitting in bed, does not seem to be in acute distress. VITAL SIGNS: Blood pressure 110/70, heart rate is 100 to 128, temperature normal, oxygen saturation on 2 liters of oxygen is 90%. HEENT: He has slightly deformed pupils, otherwise unremarkable. Neck veins approximately 10 cm. Carotid upstroke is brisk without bruit. LUNGS: He has scattered crackles posteriorly. HEART: Irregular, rapid with accentuated A2. ABDOMEN: Soft and distended. There is no masses palpable. EXTREMITIES: Lower extremities, he has amputation on the right foot transmetatarsal, on the left with one toe and he has some erythema distally of his pretibial area and edema 2+. NEUROLOGIC: He moves all extremities and appeared to have no significant neurologic deficit. LABORATORY AND DIAGNOSTIC DATA: His EKG shows atrial fibrillation, rate was 79, and there is poor R-wave progression in precordial leads. Chest x-ray shows bilateral infiltrates. Blood tests significant for white count 6.3, hemoglobin 12.2, platelets 252. Creatinine is 1. Blood sugar . Urinalysis, possible infection. Chest x-ray, bilateral patchy infiltrate. IMPRESSION AND RECOMMENDATION: Atrial fibrillation, not clear how all the patient has this condition. He seems having pneumonia versus congestive heart failure. Chest x-ray is inconclusive, but is mostly low part of his lungs. He is anticoagulated with Plavix, aspirin, and Eliquis. I am going to ask Dr. Aguilar why he needs to be on triple blood thinners including For the patient's knowledge, he did not have recently any intervention and then he should be just on Eliquis. Troponin was done, it was negative. Also BNP was mildly elevated. His potassium was 3 and then it was replaced. I am going to personally review echo later. The patient's metoprolol is going to be increased and I agree with diuresis at present time. PLAN: 1. Continue current medications plus change him to Eliquis 5 mg b.i.d. 2. We can discontinue aspirin and Plavix. Thank you very much for your consultation. Anita Whitt M.D. DR: Ge JOB#: [id number] CC:
--- NOTE | 2018-12-25 16:23 | General Progress Note ---
Assessment/Plan Assessment/Plan New onset A. Fib - RC. Awaiting Cards. 2D Echo WNL. UTI + PNA - IV Abx. Subjective Allergies: Coded Allergies: No Known Allergies (Unverified , 12/23/18) Subjective No new c/o Objective Last 24 Hour Vital Signs Date Time Temp Pulse Resp B/P (MAP) Pulse Ox O2 Delivery O2 Flow Rate FiO2 12/25/18 11:25 117 12/25/18 11:24 117 148/86 12/25/18 11:20 117 148/86 (106) 12/25/18 08:00 98.0 75 18 111/53 (72) 100 12/25/18 04:00 98.0 73 19 128/76 (93) 93 12/25/18 03:22 73 12/25/18 00:00 80 12/24/18 23:39 98.1 82 19 137/73 (94) 95 12/24/18 23:28 68 12/24/18 21:00 Nasal Cannula 2.0 12/24/18 20:24 73 115/100 12/24/18 20:00 97.5 73 19 115/100 (105) 95 12/24/18 19:40 73 Intake and Output 12/24/18 12/25/18 18:59 06:59 Intake Total 240 ml 120 ml Output Total 450 ml 1100 ml Balance -210 ml -980 ml Intake Oral 240 ml 120 ml Output Urine Total 450 ml 1100 ml Laboratory Tests 12/25/18 06:18: White Blood Count 6.3, Red Blood Count 4.22L, Hemoglobin 12.2L, Hematocrit 38.1L , Mean Corpuscular Volume 90, Mean Corpuscular Hemoglobin 29.0, Mean Corpuscular Hemoglobin Concent 32.0, Red Cell Distribution Width 14.1, Platelet Count 252, Mean Platelet Volume 5.9L, Neutrophils (%) (Auto) 54.6, Lymphocytes ( %) (Auto) 31.4, Monocytes (%) (Auto) 9.8, Eosinophils (%) (Auto) 3.5H, Basophils (%) (Auto) 0.8, Sodium Level 139, Potassium Level 4.5, Chloride Level 102, Carbon Dioxide Level 30, Anion Gap 7, Blood Urea Nitrogen 11, Creatinine 1.0, Estimat Glomerular Filtration Rate , Glucose Level 65L, Calcium Level 9.2 Height (Feet): 5 Height (Inches): 6.00 Weight (Pounds): 176 Objective Confused. Blind CV IRR/IRR. Monitor A. Fib ~70 Lungs CTA Abd SNT. BS + E + Edema Awa Mendoza MD Dec 25, 2018 16:23
--- NOTE | 2018-12-25 18:21 | Diagnostic Imaging Report ---
Indication: Shortness of breath Technique: 2 views of the chest Comparison: Single view chest dated 12/23/2018 Findings: Bilateral dense nodular appearing opacities are again demonstrated, likely representing calcified pleural plaques. There is blunting of the right costophrenic sulcus as well as of the posterior costophrenic sulcus, not clearly evident previously, likely representing a small pleural effusion. There is generalized interstitial prominence. The heart size is borderline enlarged. 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 Other more acute etiology is also possible Suspect new or increased small right pleural effusion. Cardiomegaly
[2018-12-25] MEDS: cefTRIAXone 1 GM in D5W 55 ML IVPB SCH (18:35)
--- NOTE | 2018-12-25 18:47 | Cardiology Report ---
APPROVED REPORT EXAM: Two-dimensional and M-mode echocardiogram with Doppler and color Doppler. INDICATION Atherosclerosis M-Mode DIMENSIONS IVSd1.4 (0.7-1.1cm)Left Atrium (MM)4.5 (1.6-4.0cm) LVDd4.6 (3.5-5.6cm)Aortic Root3.9 (2.0-3.7cm) PWd1.3 (0.7-1.1cm)Aortic Cusp Exc.2.4 (1.5-2.0cm) LVDs2.6 (2.5-4.0cm) PWs1.9 cm Normal left ventricular chamber size, systolic function and wall motion. Left ventricular ejection fraction estimated to be 60 %. Mild left ventricular hypertrophy. Anterior Echo-free space, may be due to pericardial fat or effusion. Mild bi-atrial enlargement. Mild right ventricular enlargement. Mild aortic root dilatation. Focal aortic valve sclerosis with adequate cusp excursion. Mildly thickened mitral valve leaflets with normal excursion. Mild mitral annulus and aortic root calcification. Normal pulmonic valve structure. Normal tricuspid valve structure. IVC dilated at 2.7 cm without physiological collapse, suggestive of increased RA pressure. A color flow and spectral Doppler study was performed and revealed: No aortic insufficiency. Trace mitral regurgitation. Left ventricular diastolic function could not be determined due to A-Fib. Mild tricuspid regurgitation. Tricuspid systolic velocities suggests peak right ventricular systolic pressure of 44 mmHg, consistent with mild pulmonary hypertension. No pulmonic regurgitation present.
--- NOTE | 2018-12-25 19:25 | NUR ---
NURSE NOTES: Received report from Cornelius Jim RN. Pt is resting in RA w/o respiratory distress. Staffs are helping him to ambulate and use restroom but pt is keep asking help, by saying "No body is helping me." Endorsed that Dr. Mendoza discontinued metformin and lantus and levmir is discontinued in eMAR. Current BS is 179. Pt is asking to have sugar and candy. Pt is up and took candy from his belonging and ate it. Will continue to monitor. Called and left message to Dr. Mendoza for BS level and no insulin order, awaiting call back. HOB kept 30 degree. Bed in lowest position and breaks are engaged. Urinal, walker, Call light and side table are w/in reach. Will follow plans of care.
--- NOTE | 2018-12-25 19:38 | Cardiology Report ---
APPROVED REPORT EKG Measurement Heart [id number] Atrial flutter with varible AV block. Low voltage QRS Septal infarct, age undetermined Abnormal ECG
[2018-12-25 20:00] VITALS: BP 101/68
--- NOTE | 2018-12-25 20:50 | NUR ---
NURSE NOTES: Called and left message to Dr. Whitt at regarding BP 101/68 and scheduled med of lasix 20mg, and lopressor 50mg at 2100 in eMAR. Pt is ambulating by himself to use bathroom continuously using his walker. Pt is A&O x2 and was instructed to stay in the bed or call for help for safety but pt is noncompliance. Will continue to monitor. Addendum: 12/25/18 at 2202 by JIMBO NARVAEZ RN Dr. Alireza laureano. Will monitor VS.
[2018-12-25] MEDS: TraZODone 100mg tab ORAL SCH (20:58)
[2018-12-25] MEDS: Atorvastatin 20mg tab ORAL SCH (20:59)
--- NOTE | 2018-12-25 21:31 | NUR ---
HAND-OFF: Report given to Angelica Soni.
--- NOTE | 2018-12-25 21:33 | NUR ---
NURSE NOTES: confirmed with Osei Garcia that the following medications are going to be stopped: Amlodipine, benadryl, gabapentin, Lantus, Loratidine, Metformin, and Plaxil.
[2018-12-26] VITALS: BP 103/64
[2018-12-26 04:00] VITALS: BP 124/98
[2018-12-26] MEDS: HYDROcodone/Acetamin 5/325 tab ORAL SCH ×3 (05:13→13:04)
--- NOTE | 2018-12-26 07:05 | NUR ---
HAND-OFF: Report given to Prachi Flores RN.
--- NOTE | 2018-12-26 07:10 | NUR ---
Received report from Fany/HARINDER, patient is awake, No distress/SOB noted at this time. Bed in low position, Call light within reach. Will continue plan of care.
[2018-12-26 08:00] VITALS: BP 110/89
[2018-12-26] MEDS: Aspirin Baby 81mg ORAL SCH ×2 (09:01→09:03)
[2018-12-26] MEDS: Docusate 100mg cap ORAL SCH ×2 (09:01→09:03)
[2018-12-26] MEDS: Eliquis 2.5mg tablet ORAL SCH ×2 (09:02→09:03)
[2018-12-26] MEDS: Losartan 50mg tab ORAL SCH (09:04)
[2018-12-26] MEDS: Tamsulosin 0.4mg cap ORAL SCH (09:04)
[2018-12-26] MEDS: Metoprolol Tartrate 50mg tab ORAL SCH ×2 (09:04→22:45)
[2018-12-26] MEDS: Azithromycin 250mg tab ORAL SCH (09:05)
--- NOTE | 2018-12-26 09:49 | NUR ---
CASE MANAGEMENT:REVIEW 12/26/18 SI: A-DIVYA . PNA . CHF. UTI 97.9 123 20 110/89 95% ON RA IS: IV ROCEPHIN Q24 IV VANCOMYCIN Q24 AZITHROMYCIN PO Q24 COZAAR PO QD LOPRESSOR PO Q12 ELIQUIS PO BID ASA PO QD KLONOPIN PO BID PLAVIX PO QD DIGOXIN PO QD : TELEMETRY STATUS DCP: FROM [facility]
--- NOTE | 2018-12-26 11:18 | NUR ---
NURSE NOTES: Called Dr. Mendoza, regarding Patient's MRSA Nares Positive, and blood sugar is 195, Patient doesn't have any DM medication.
[2018-12-26 12:00] VITALS: BP 102/64
--- NOTE | 2018-12-26 12:09 | NUR ---
*-* INSURANCE *-* ALL CLINICALS AND REVIEWS HAVE BEEN FAXED TO: [facility] PLEASE FAX THE REVIEW/CLINICAL P- [phone] X [phone] F- [phone]
[2018-12-26] MEDS: Vancomycin 1.5gm Premix IVPB SCH (12:35)
--- NOTE | 2018-12-26 12:51 | General Progress Note ---
Assessment/Plan Assessment/Plan New onset A. Fib - RC. Awaiting Cards. 2D Echo WNL. UTI + PNA - IV Abx. U rine C+s negative CXr no inf. DC Abx DC home. Subjective Allergies: Coded Allergies: No Known Allergies (Unverified , 12/23/18) Subjective No new c/o Objective Last 24 Hour Vital Signs Date Time Temp Pulse Resp B/P (MAP) Pulse Ox O2 Delivery O2 Flow Rate FiO2 12/26/18 12:00 97.5 63 18 102/64 (77) 95 12/26/18 09:04 110/89 12/26/18 09:04 123 110/89 12/26/18 09:04 123 12/26/18 09:01 123 12/26/18 09:00 Room Air 12/26/18 08:00 97.9 123 20 110/89 (96) 95 12/26/18 05:43 98.0 12/26/18 04:00 98.0 100 18 124/98 (107) 96 12/26/18 03:28 118 12/26/18 00:00 98.1 67 18 103/64 (77) 96 12/25/18 23:37 91 12/25/18 21:00 Room Air 12/25/18 21:00 81 101/68 12/25/18 20:00 97.8 81 18 101/68 (79) 99 12/25/18 19:35 80 12/25/18 16:00 74 12/25/18 16:00 98.0 79 18 101/58 (72) 99 Intake and Output 12/25/18 12/26/18 19:00 07:00 Intake Total 500 ml Balance 500 ml Intake Oral 500 ml # Voids 3 Height (Feet): 5 Height (Inches): 6.00 Weight (Pounds): 176 Objective Confused. Blind CV IRR/IRR. Monitor A. Fib ~70 Lungs CTA Abd SNT. BS + E + Edema Awa Mendoza MD Dec 26, 2018 12:51
[2018-12-26] MEDS ORDERED: LIPITOR20 MG ORAL (12:57)
[2018-12-26] MEDS ORDERED: NORCO 5-325 TA1 EACH ORAL (12:57)
[2018-12-26] MEDS ORDERED: CLONAZEPAM1 M2 ORAL (12:57)
[2018-12-26] MEDS ORDERED: METOPROLOL TART50 MG ORAL (12:57)
[2018-12-26] MEDS ORDERED: NITROSTAT0.4 M1 SL (12:57)
[2018-12-26] MEDS ORDERED: DIGOXIN250 MCG ORAL (12:57)
[2018-12-26] MEDS ORDERED: COLACE100 MG ORAL (12:57)
[2018-12-26] MEDS ORDERED: ACETAMINOPHEN325 M1 ORAL (12:57)
[2018-12-26] MEDS ORDERED: FAMOTIDINE20 MG ORAL (12:57)
[2018-12-26] MEDS ORDERED: DESYREL100 MG ORAL (12:57)
[2018-12-26] MEDS ORDERED: COZAAR50 MG ORAL (12:57)
[2018-12-26] MEDS ORDERED: ELIQUIS2.5 MG ORAL (12:57)
[2018-12-26] MEDS ORDERED: ASPIRIN81 MG ORAL (12:57)
[2018-12-26] MEDS ORDERED: FLOMAX0.4 MG ORAL (12:57)
[2018-12-26] MEDS ORDERED: MOM30 ML ORAL (12:57)
[2018-12-26] MEDS ORDERED: SYNTHROID100 MCG ORAL (12:57)
--- NOTE | 2018-12-26 13:00 | NUR ---
NURSE NOTES: Patient refused all his medications. he removed his heart monitor
--- NOTE | 2018-12-26 15:59 | NUR ---
NURSE NOTES: called [facility] and talked to Wilma Ma (inside sales administrator), She said "patient is suicidal, doesn't take his medication and he walks around naked" she said she can't take him back until he checked out by Psychiatric
[2018-12-26 16:00] VITALS: BP 102/63
[2018-12-26] MEDS: cefTRIAXone 1 GM in D5W 55 ML IVPB SCH (16:00)
--- NOTE | 2018-12-26 19:30 | NUR ---
HAND-OFF: Report given to Jose De Jesus/RN. Patient in stable condition. Endorsed plan of care.
--- NOTE | 2018-12-26 19:31 | NUR ---
NURSE NOTES: Received report from HARINDER Mi. Patient in bed asleep showing no signs of acute distress. VS stable. NO SOB. Bed in lowest position. Call light within reach. All needs attended and met. Will continue plan of care.
[2018-12-26 20:00] VITALS: BP 126/85
--- NOTE | 2018-12-26 21:00 | NUR ---
NURSE NOTES: Patient refused to have threat monitoring analyst in him. Explained risk, benefit and hospital protocol, patient still refused.
--- NOTE | 2018-12-26 21:16 | Consultation ---
History of Present Illness General Chief Complaint: General Complaint Present Illness HPI 78 yo male with hx of depression and anxiety brought from board and care due to low blood sugar and infiltrate on his chest x-ray and atrial fibrillation. the pt pw depressed mood, anhedonia, worthlessness, hopelessness. the pt has suicidal ideation and difficulty sleeping. the pt is restless Allergies: Coded Allergies: No Known Allergies (Unverified , 12/23/18) Medication History Scheduled Amlodipine Besylate* (Amlodipine Besylate*), 5 MG ORAL DAILY, (Reported) Apixaban (Eliquis), 2.5 MG ORAL BID Aspirin* (Aspirin*), 81 MG ORAL DAILY Atorvastatin Calcium* (Atorvastatin Calcium*), 20 MG ORAL BEDTIME, (Reported) Atorvastatin Calcium* (Lipitor*), 20 MG ORAL BEDTIME Clonazepam (Clonazepam), 1 MG ORAL BID Clopidogrel* (Clopidogrel*), 75 MG ORAL DAILY, (Reported) Digoxin* (Digoxin*), 0.25 MG ORAL DAILY Docusate Sodium* (Colace*), 100 MG ORAL TWICE A DAY Famotidine (Famotidine), 20 MG ORAL DAILY Gabapentin* (Gabapentin*), 300 MG ORAL THREE TIMES A DAY, (Reported) Hydrocodone Bit/Acetaminophen 5-325* ([place] 5-325*), 1 TAB ORAL Q6HR Insulin Glargine (Lantus), 40 UNITS SUBQ BEDTIME, (Reported) Insulin Lispro (Humalog), 10 UNITS SUBQ Daily in morning, (Reported) Levothyroxine Sodium* (Synthroid*), 100 MCG ORAL DAILY@0630 Loratadine (Loratadine), 10 MG PO DAILY, (Reported) Losartan Potassium (Losartan Potassium), 100 MG ORAL DAILY, (Reported) Losartan Potassium* (Cozaar*), 100 MG ORAL DAILY Metformin Hcl (Metformin Hcl Er), 1,000 MG ORAL DAILY, (Reported) Metoprolol Tartrate* (Metoprolol Tartrate*), 50 MG ORAL EVERY 12 HOURS [place]-3 Acid Ethyl Esters ([place]-3 Acid Ethyl Esters), 1 CAP PO BID, (Reported) Paroxetine Hcl* (Paxil*), 20 MG PO DAILY, (Reported) Tamsulosin HCl (Flomax), 0.4 MG ORAL DAILY Trazodone Hcl (Desyrel), 100 MG ORAL BEDTIME Scheduled PRN Acetaminophen* (Acetaminophen 325MG Tablet*), 650 MG ORAL Q4H PRN Diphenhydramine Hcl (Banophen), 25 MG PO BEDTIME PRN for Insomnia, (Reported) Glucagon,Human Recombinant (Glucagon Emergency Kit), 1 MG IJ for hypoglycemia, if BS < 70, (Reported) Magnesium Hydroxide (Milk of Magnesia), 30 ML ORAL HSPRN PRN Nitroglycerin (Nitrostat), 0.4 MG SL .Q5MIN X 3 DOSES PRN Miscellaneous Medications Insulin Lispro (Humalog), 0 SUBQ, (Reported) Discontinued Medications Clonazepam* (Klonopin*), 1 MG ORAL BID, (Reported) Discontinued Reason: MD discontinued med Docusate Sodium* (Docusate Sodium*), 100 MG ORAL TWICE A DAY, (Reported) Discontinued Reason: MD discontinued med Famotidine (Famotidine), 20 MG ORAL DAILY, (Reported) Discontinued Reason: MD discontinued med Hydrocodone Bit/Acetaminophen 5-325* ([place] 5-325*), 1 TAB ORAL Q6H, (Reported) Discontinued Reason: MD discontinued med Levothyroxine Sodium* (Levoxyl*), 100 MCG ORAL DAILY, (Reported) Discontinued Reason: MD discontinued med Tamsulosin HCl (Flomax), 0.4 MG ORAL DAILY, (Reported) Discontinued Reason: MD discontinued med Trazodone Hcl* (Desyrel*), 100 MG ORAL BEDTIME, (Reported) Discontinued Reason: MD discontinued med Patient History History Provided By: Patient, Medical Record, PMD Healthcare decision maker Resuscitation status Advanced Directive on File Past Medical/Surgical History Past Medical/Surgical History: (1) Urinary tract infection (2) CHF (congestive heart failure) (3) Pneumonia (4) Atrial fibrillation with RVR Review of Systems Psychiatric: Reports: prior hx, anxiety, depressed feelings, emotional problems Physical Exam General Appearance: WD/WN, no apparent distress, alert Neurologic: oriented x 3, responsive, depressed affect Last 24 Hour Vital Signs Date Time Temp Pulse Resp B/P (MAP) Pulse Ox O2 Delivery O2 Flow Rate FiO2 12/26/18 16:00 97.3 89 20 102/63 (76) 96 12/26/18 13:04 97.5 12/26/18 12:00 97.5 63 18 102/64 (77) 95 12/26/18 12:00 62 4/9/19 09:04 110/89 12/26/18 09:04 123 110/89 12/26/18 09:04 123 12/26/18 09:01 123 12/26/18 09:00 Room Air 12/26/18 08:00 122 12/26/18 08:00 97.9 123 20 110/89 (96) 95 12/26/18 04:00 98.0 100 18 124/98 (107) 96 12/26/18 03:28 118 12/26/18 00:00 98.1 67 18 103/64 (77) 96 12/25/18 23:37 91 Intake and Output 12/25/18 12/26/18 18:59 06:59 Intake Total 500 ml Balance 500 ml Intake Oral 500 ml # Voids 3 Height (Feet): 5 Height (Inches): 6.00 Weight (Pounds): 176 Medications Current Medications Medications (Trade) Dose Ordered Sig/Diana Route PRN Reason Start Time Stop Time Status Last Admin Dose Admin Acetaminophen (Tylenol) 650 mg Q4H PRN ORAL Mild Pain (Pain Scale 1-3) 12/23/18 20:52 01/22/19 20:51 Acetaminophen/ Hydrocodone Bitart ([place] 5/325) 1 tab Q6HR ORAL 12/24/18 00:00 12/31/18 00:00 12/26/18 12:34 Apixaban (Eliquis) 2.5 mg BID ORAL 12/24/18 12:31 01/23/19 12:30 Future hold 12/26/18 09:03 Aspirin (ASA) 81 mg DAILY ORAL 12/24/18 09:00 01/23/19 08:59 12/26/18 09:03 Atorvastatin Calcium (Lipitor) 20 mg BEDTIME ORAL 12/23/18 21:00 01/22/19 20:59 12/25/18 20:59 Azithromycin (Zithromax) 250 mg DAILY ORAL 12/25/18 09:00 01/01/19 08:59 12/26/18 09:05 Ceftriaxone Sodium 1 gm/ Dextrose 55 ml @ 110 mls/hr Q24H IVPB 12/24/18 16:00 12/31/18 15:59 12/25/18 18:35 Clonazepam (KlonoPIN) 1 mg BID ORAL 12/24/18 09:00 12/31/18 08:59 12/26/18 09:03 Clopidogrel Bisulfate (Plavix) 75 mg DAILY ORAL 12/24/18 09:00 01/23/19 08:59 12/26/18 09:04 Dextrose (Dextrose 50%) 25 ml Q30M PRN IV Hypoglycemia 12/23/18 20:15 01/22/19 20:14 Dextrose (Dextrose 50%) 50 ml Q30M PRN IV Hypoglycemia 12/23/18 20:15 01/22/19 20:14 Digoxin (Lanoxin) 0.25 mg DAILY ORAL 12/24/18 09:00 01/23/19 08:59 12/26/18 09:04 Docusate Sodium (Colace) 100 mg TWICE A DAY ORAL 12/24/18 09:00 01/23/19 08:59 12/26/18 09:03 Famotidine (Pepcid) 20 mg DAILY ORAL 12/24/18 09:00 01/23/19 08:59 12/26/18 09:04 Levothyroxine Sodium (Synthroid) 100 mcg DAILY@0630 ORAL 12/24/18 06:30 01/23/19 06:29 12/26/18 06:07 Losartan Potassium (Cozaar) 100 mg DAILY ORAL 12/26/18 09:00 01/25/19 08:59 12/26/18 09:04 Magnesium Hydroxide (Mom) 30 ml HSPRN PRN ORAL Constipation 12/23/18 20:15 01/22/19 20:14 Metoprolol Tartrate (Lopressor) 50 mg EVERY 12 HOURS ORAL 12/25/18 09:00 01/12/19 08:59 12/26/18 09:04 Nitroglycerin (Ntg) 0.4 mg Q5MIN X 3 DOSES PRN SL Prn Chest Pain 12/23/18 21:00 01/22/19 20:59 Ondansetron HCl (Zofran) 4 mg Q6H PRN IVP Nausea & Vomiting 12/23/18 20:53 01/22/19 20:52 Tamsulosin HCl (Flomax) 0.4 mg DAILY ORAL 12/24/18 09:00 01/23/19 08:59 12/26/18 09:04 Trazodone HCl (Desyrel) 100 mg BEDTIME ORAL 12/23/18 21:00 01/22/19 20:59 12/25/18 20:58 Vancomycin HCl (Vanco rx to dose) 1 ea DAILY PRN MISC Per rx protocol 12/24/18 11:45 01/23/19 11:44 Vancomycin HCl/ Dextrose 275 ml @ 137.5 mls/ hr Q24H IVPB 12/24/18 13:00 12/29/18 12:59 12/26/18 12:35 Assessment/Plan Problem List: (1) MDD (major depressive disorder), recurrent episode ICD Codes: F33.9 - Major depressive disorder, recurrent, unspecified SNOMED: 205996732 (2) Anxiety disorder ICD Codes: F41.9 - Anxiety disorder, unspecified SNOMED: 192689095 Assessment/Plan Dc Trazodone zyprexa klonopin 1mg po bid dw PMD transfer the pt to psych unit Kyara Beasley MD Dec 26, 2018 21:16
--- NOTE | 2018-12-26 22:00 | Cardiology Progress Note ---
Assessment/Plan Assessment/Plan start oral furosemide his psychiatric status is worse Subjective Subjective The patient is eating dinner, he is not wearing telemetry wires, he refused, the patient is confused Objective Last 24 Hour Vital Signs Date Time Temp Pulse Resp B/P (MAP) Pulse Ox O2 Delivery O2 Flow Rate FiO2 12/26/18 16:00 97.3 89 20 102/63 (76) 96 12/26/18 13:04 97.5 12/26/18 12:00 97.5 63 18 102/64 (77) 95 12/26/18 12:00 62 12/26/18 09:04 110/89 12/26/18 09:04 123 110/89 12/26/18 09:04 123 12/26/18 09:01 123 12/26/18 09:00 Room Air 12/26/18 08:00 122 12/26/18 08:00 97.9 123 20 110/89 (96) 95 12/26/18 04:00 98.0 100 18 124/98 (107) 96 12/26/18 03:28 118 12/26/18 00:00 98.1 67 18 103/64 (77) 96 12/25/18 23:37 91 General Appearance: agitated EENT: PERRL/EOMI Neck: JVD Rhythm: Afib Cardiovascular: tachycardia Respiratory/Chest: crackles/rales Extremities: normal range of motion Intake and Output 12/25/18 12/26/18 18:59 06:59 Intake Total 500 ml Balance 500 ml Intake Oral 500 ml # Voids 3 Anita Whitt MD Dec 26, 2018 22:00
[2018-12-26] MEDS: Atorvastatin 20mg tab ORAL SCH (22:45)
[2018-12-26] MEDS: OLANZapine 2.5mg tab ORAL PRN (22:46)
[2018-12-27] VITALS: BP 112/79
[2018-12-27 04:00] VITALS: BP 103/66
[2018-12-27] MEDS: HYDROcodone/Acetamin 5/325 tab ORAL SCH ×4 (05:02→17:44)
[2018-12-27] MEDS: OLANZapine 2.5mg tab ORAL PRN ×2 (05:03→20:31)
--- NOTE | 2018-12-27 07:44 | NUR ---
NURSE NOTES: Received report from Jose De Jesus PIZANO. Ao x2 and verbally responsive. Bed in lowest position locked. Noted O2 off, pt refused. Pt ambulated with walker with unsteady gait. No c.o pain. No signs of distress noted. IV LFA 20G SL intact and patent. Will continue to plan of care.
--- NOTE | 2018-12-27 07:44 | NUR ---
HAND-OFF: Report given to HARINDER Sawant.
[2018-12-27 08:00] VITALS: BP 86/57
[2018-12-27] MEDS: Eliquis 2.5mg tablet ORAL SCH ×2 (08:19→17:45)
[2018-12-27] MEDS: Tamsulosin 0.4mg cap ORAL SCH (08:19)
[2018-12-27] MEDS: Azithromycin 250mg tab ORAL SCH (08:20)
[2018-12-27] MEDS: Docusate 100mg cap ORAL SCH ×2 (08:20→17:45)
[2018-12-27] MEDS: Aspirin Baby 81mg ORAL SCH (08:20)
[2018-12-27] MEDS: OLANZapine 2.5mg tab ORAL SCH ×2 (08:20→16:12)
--- NOTE | 2018-12-27 08:40 | NUR ---
NURSE NOTES: Informed Dr. Aguilar that patient has low BP 86/57. Hold for transferring to [place]. Will continue plan of care.
[2018-12-27] MEDS: Losartan 50mg tab ORAL SCH (09:00)
[2018-12-27] MEDS: Metoprolol Tartrate 50mg tab ORAL SCH ×2 (09:00→21:00)
[2018-12-27] MEDS: Furosemide 40mg tab ORAL SCH (09:00)
--- NOTE | 2018-12-27 10:37 | NUR ---
CASE MANAGEMENT:REVIEW 12/27/18 SI: A-DIVYA . PNA . CHF. UTI 98.2 65 18 86/57 95% ON RA IS: IV ROCEPHIN Q24 IV VANCOMYCIN Q24 AZITHROMYCIN PO Q24 COZAAR PO QD LOPRESSOR PO Q12 ELIQUIS PO BID ASA PO QD KLONOPIN PO BID PLAVIX PO QD DIGOXIN PO QD : TELEMETRY STATUS DCP: FROM [facility]: PSYCH CONSULT ~ PATIENT AGITATED AND WALKING AROUND NAKED ~ [facility] WILL NOT TAKE HIM BACK
--- NOTE | 2018-12-27 10:54 | General Progress Note ---
Assessment/Plan Problem List: (1) MDD (major depressive disorder), recurrent episode ICD Codes: F33.9 - Major depressive disorder, recurrent, unspecified SNOMED: 981015320 (2) Anxiety disorder ICD Codes: F41.9 - Anxiety disorder, unspecified SNOMED: 303661682 Assessment/Plan Dc Trazodone zyprexa klonopin 1mg po bid dw PMD transfer the pt to psych unit Subjective Neurologic/Psychiatric: Reports: anxiety, depressed, emotional problems Allergies: Coded Allergies: No Known Allergies (Unverified , 12/23/18) Objective Last 24 Hour Vital Signs Date Time Temp Pulse Resp B/P (MAP) Pulse Ox O2 Delivery O2 Flow Rate FiO2 12/27/18 09:00 Room Air 12/27/18 09:00 86/57 12/27/18 09:00 65 86/57 12/27/18 08:19 65 12/27/18 08:00 98.2 65 18 86/57 (67) 95 12/27/18 04:00 98.2 66 16 103/66 (78) 94 12/27/18 00:00 97.1 107 18 112/79 (90) 95 12/26/18 22:45 126 126/85 12/26/18 21:00 Room Air 12/26/18 20:00 98.1 126 17 126/85 (99) 94 12/26/18 16:00 97.3 89 20 102/63 (76) 96 12/26/18 13:04 97.5 12/26/18 12:00 97.5 63 18 102/64 (77) 95 12/26/18 12:00 62 Intake and Output 12/26/18 12/27/18 19:00 07:00 Intake Total 360 ml Balance 360 ml Intake Oral 360 ml # Voids 4 7 # Bowel Movements 1 Height (Feet): 5 Height (Inches): 6.00 Weight (Pounds): 175 General Appearance: WD/WN, no apparent distress, alert Neurologic: oriented x 3, responsive, depressed affect Kyara Beasley MD Dec 27, 2018 10:54
--- NOTE | 2018-12-27 11:16 | NUR ---
*-* INSURANCE *-* ALL CLINICALS AND REVIEWS HAVE BEEN FAXED TO: [facility] PLEASE FAX THE REVIEW/CLINICAL P- [phone] F- [phone]
[2018-12-27 12:00] VITALS: BP 93/56
[2018-12-27] MEDS: Vancomycin 1.5gm Premix IVPB SCH (13:20)
--- NOTE | 2018-12-27 13:24 | General Progress Note ---
Assessment/Plan Assessment/Plan New onset A. Fib - RC. Awaiting Cards. 2D Echo WNL. UTI + PNA - IV Abx. U rine C+s negative CXr no inf. DC Abx DC home. B+C refusing to take the patient back. In y opinion this is a "Dump". Should be reported. Subjective Allergies: Coded Allergies: No Known Allergies (Unverified , 12/23/18) Subjective No new c/o Objective Last 24 Hour Vital Signs Date Time Temp Pulse Resp B/P (MAP) Pulse Ox O2 Delivery O2 Flow Rate FiO2 12/27/18 12:00 98.0 64 20 93/56 (68) 96 12/27/18 09:00 Room Air 12/27/18 09:00 86/57 12/27/18 09:00 65 86/57 12/27/18 08:19 65 12/27/18 08:00 98.2 65 18 86/57 (67) 95 12/27/18 04:00 98.2 66 16 103/66 (78) 94 12/27/18 00:00 97.1 107 18 112/79 (90) 95 12/26/18 22:45 126 126/85 12/26/18 21:00 Room Air 12/26/18 20:00 98.1 126 17 126/85 (99) 94 12/26/18 16:00 97.3 89 20 102/63 (76) 96 Intake and Output 12/26/18 12/27/18 19:00 07:00 Intake Total 360 ml Balance 360 ml Intake Oral 360 ml # Voids 4 7 # Bowel Movements 1 Laboratory Tests 12/27/18 11:52: Vancomycin Level Trough 3.5L Height (Feet): 5 Height (Inches): 6.00 Weight (Pounds): 175 Objective Confused. Blind CV IRR/IRR. Monitor A. Fib ~70 Lungs CTA Abd SNT. BS + E + Edema Awa Mendoza MD Dec 27, 2018 13:24
[2018-12-27 16:00] VITALS: BP 88/57
--- NOTE | 2018-12-27 16:00 | NUR ---
NURSE NOTES: Dr. Lopez called for hypotension with BP 88/57, P 63. Per dr. lopez aware of it and no intervention needed.
--- NOTE | 2018-12-27 16:00 | NUR ---
Dr. Lopez called for hypotension with BP 88/57, P 63. Per dr. lopez aware of it and no intervention needed.
--- NOTE | 2018-12-27 16:30 | NUR ---
NURSE NOTES: Spoke to Asia PIZANO regaring transfer the pt to [facility]. She asked Dr. Mendoza to call Dr. Dumas directly for admission authorization. Dr. Mendoza paged and awaiting for reply.
[2018-12-27] MEDS: cefTRIAXone 1 GM in D5W 55 ML IVPB SCH (16:57)
--- NOTE | 2018-12-27 17:12 | NUR ---
NURSE NOTES: [facility]: Cheryl, career development engineer: [phone], fax: [phone] Asia RN: [phone] (director craft center @[facility]) [phone]
--- NOTE | 2018-12-27 19:13 | NUR ---
HAND-OFF: Report given to Jose De Jesus PIZANO. Pt remains stable.
--- NOTE | 2018-12-27 19:14 | NUR ---
NURSE NOTES: Received report from Daniel Sawant RN. Patient in bathroom ambulating steady with walker showing no signs of acute distress. VS stable. NO SOB. Pt. presents with episodes of confusion, stating " I haven't gone to the bathroom". Seen patient in out of the bathroom. Safety measures observed. All needs attended and met. Will continue plan of care.
[2018-12-27 20:00] VITALS: BP 107/74
[2018-12-27] MEDS: Atorvastatin 20mg tab ORAL SCH (20:30)
--- NOTE | 2018-12-27 22:22 | Cardiology Progress Note ---
Assessment/Plan Assessment/Plan will discontinue losartan due to hypotension Subjective Subjective The patient is less agitated, more lethargic, he denied dyspnea, but he is confused Objective Last 24 Hour Vital Signs Date Time Temp Pulse Resp B/P (MAP) Pulse Ox O2 Delivery O2 Flow Rate FiO2 12/27/18 16:12 72 12/27/18 16:00 97.7 63 20 88/57 (67) 96 12/27/18 12:00 64 12/27/18 12:00 98.0 64 20 93/56 (68) 96 12/27/18 09:00 Room Air 12/27/18 09:00 86/57 12/27/18 09:00 65 86/57 12/27/18 08:19 65 12/27/18 08:00 98.2 65 18 86/57 (67) 95 12/27/18 04:00 98.2 66 16 103/66 (78) 94 12/27/18 00:00 97.1 107 18 112/79 (90) 95 12/26/18 22:45 126 126/85 General Appearance: lethargic EENT: PERRL/EOMI Neck: JVD Rhythm: Afib Cardiovascular: tachycardia Respiratory/Chest: crackles/rales Abdomen: soft Intake and Output 12/26/18 12/27/18 18:59 06:59 Intake Total 360 ml Balance 360 ml Intake Oral 360 ml # Voids 4 7 # Bowel Movements 1 Laboratory Tests Test 12/27/18 11:52 Vancomycin Level Trough 3.5 ug/mL (5.0-12.0) L Microbiology Date/Time Source Procedure Growth Status 12/25/18 02:00 Nasal Nares MRSA Culture - Final NO METHICILLIN RESISTANT STAPH AUREUS... Complete Anita Whitt MD Dec 27, 2018 22:22
[2018-12-28] VITALS: BP 89/56
[2018-12-28] MEDS: HYDROcodone/Acetamin 5/325 tab ORAL SCH ×3 (00:26→12:00)
[2018-12-28] MEDS ORDERED: Vancomycin 1.5gm Premix IVPB SCH (01:00)
--- NOTE | 2018-12-28 03:00 | NUR ---
HAND-OFF: Report given to HARINDER Lino.
[2018-12-28 04:00] VITALS: BP 84/61
--- NOTE | 2018-12-28 07:38 | NUR ---
HAND-OFF: Report given to HARINDER Hernadez. Pt stable.
--- NOTE | 2018-12-28 07:45 | NUR ---
NURSE NOTES: Received report from HARINDER Lino. Pt is sitting up in bed and appears agitated. He is able to answer all my questions. Bed is in lowest position, side rails up X2, and call light is within reach. Will continue to monitor.
[2018-12-28 08:00] VITALS: BP 95/59
--- NOTE | 2018-12-28 08:07 | General Progress Note ---
Assessment/Plan Assessment/Plan New onset A. Fib - RC. Awaiting Cards. 2D Echo WNL. UTI + PNA - IV Abx. U rine C+s negative CXr no inf. DC Abx DC home. B+C refusing to take the patient back. In y opinion this is a "Dump". Should be reported. Subjective Allergies: Coded Allergies: No Known Allergies (Unverified , 12/23/18) Subjective No new c/o Objective Last 24 Hour Vital Signs Date Time Temp Pulse Resp B/P (MAP) Pulse Ox O2 Delivery O2 Flow Rate FiO2 12/28/18 04:00 98.7 77 17 84/61 (69) 97 12/28/18 04:00 97 12/28/18 00:00 117 12/28/18 00:00 98.1 129 18 89/56 (67) 99 12/27/18 21:00 Room Air 12/27/18 21:00 70 107/74 12/27/18 20:00 98.0 70 18 107/74 (85) 99 12/27/18 20:00 72 12/27/18 16:12 72 12/27/18 16:00 97.7 63 20 88/57 (67) 96 12/27/18 12:00 64 12/27/18 12:00 98.0 64 20 93/56 (68) 96 12/27/18 09:00 Room Air 12/27/18 09:00 86/57 12/27/18 09:00 65 86/57 12/27/18 08:19 65 Intake and Output 12/27/18 12/28/18 19:00 07:00 Intake Total 960.0 ml Balance 960.0 ml Intake Oral 630 ml IV Total 330.0 ml # Voids 6 11 # Bowel Movements 1 Laboratory Tests 12/27/18 11:52: Vancomycin Level Trough 3.5L Height (Feet): 5 Height (Inches): 6.00 Weight (Pounds): 175 Objective Confused. Blind CV IRR/IRR. Monitor A. Fib ~70 Lungs CTA Abd SNT. BS + E + Edema Awa Mendoza MD Dec 28, 2018 08:07
[2018-12-28] MEDS: Docusate 100mg cap ORAL SCH (08:36)
[2018-12-28] MEDS: Tamsulosin 0.4mg cap ORAL SCH (08:37)
[2018-12-28] MEDS: Furosemide 40mg tab ORAL SCH (08:37)
[2018-12-28] MEDS: Eliquis 2.5mg tablet ORAL SCH (08:37)
[2018-12-28] MEDS: Aspirin Baby 81mg ORAL SCH (08:37)
[2018-12-28] MEDS: OLANZapine 2.5mg tab ORAL SCH (08:37)
[2018-12-28] MEDS: Azithromycin 250mg tab ORAL SCH (08:37)
[2018-12-28] MEDS: Metoprolol Tartrate 50mg tab ORAL SCH (08:38)
[2018-12-28] MEDS ORDERED: clonazePAM 0.5mg tab ORAL SCH (09:00)
[2018-12-28 09:38] LABS: BASOPHILS % (AUTO) 0.9 % (0.0-2.0); EOSINOPHILS % (AUTO) 1.8 % (0.0-3.0); HEMATOCRIT 41.3 % (42.0-52.0); HEMOGLOBIN 13.5 G/DL (14.2-18.0); LYMPHOCYTES % (AUTO) 27.4 % (20.0-45.0); MEAN CORPUSCULAR VOLUME 89 FL (80-99); MONOCYTES % (AUTO) 7.7 % (1.0-10.0); NEUTROPHILS % (AUTO) 62.1 % (45.0-75.0); PLATELET COUNT 323 K/UL (150-450); RED BLOOD COUNT 4.66 M/UL (4.70-6.10); WHITE BLOOD COUNT 9.2 K/UL (4.8-10.8)
[2018-12-28 09:40] LABS: ALANINE AMINOTRANSFERASE 27 U/L (12-78); ALBUMIN 3.3 G/DL (3.4-5.0); ALBUMIN/GLOBULIN RATIO 0.6 (1.0-2.7); ALKALINE PHOSPHATASE 76 U/L (46-116); ANION GAP 10 mmol/L (5-15); ASPARTATE AMINO TRANSFERASE 24 U/L (15-37); BILIRUBIN,TOTAL 0.7 MG/DL (0.2-1.0); BLOOD UREA NITROGEN 15 mg/dL (7-18); CALCIUM 9.5 MG/DL (8.5-10.1); CARBON DIOXIDE 27 MMOL/L (21-32); CHLORIDE 103 MMOL/L (98-107); POTASSIUM 3.9 MMOL/L (3.5-5.1); SODIUM 140 MMOL/L (136-145)
--- NOTE | 2018-12-28 09:55 | NUR ---
NURSE NOTES: patient is agitated and wants to go outside. Explained to him that we do not want him to injure himself as he is unsteady on his feet. He was adamant that he wanted to go outside and refused to go back into his room. Pt was yelling. Security was on the elevator as patient was trying to enter it and security was able to help calm the patient down. Called Dr. Beasley and left a message with her explaining the situation.
--- NOTE | 2018-12-28 10:30 | NUR ---
NURSE NOTES: Received call from Dr. Beasley. She states that she is trying to have patient admitted to [facility]'s psych unit. SHe will Contact me again to let me know if [facility] accepts the patient.
--- NOTE | 2018-12-28 10:46 | NUR ---
CASE MANAGEMENT:REVIEW 12/28/18 SI: Huber-DIVYA . PNA . CHF. UTI 98.6 111 19 95/59 94% ON RA IS: IV ROCEPHIN Q24 IV VANCOMYCIN Q12 AZITHROMYCIN PO Q24 LASIX PO QD ZYPREXA PO QD LOPRESSOR PO Q12 ELIQUIS PO BID ASA PO QD PLAVIX PO QD DIGOXIN PO QD : TELEMETRY STATUS DCP: FROM TENA SIMMS PLAN: PSYCH CONSULT ~
--- NOTE | 2018-12-28 11:15 | NUR ---
NURSE NOTES: Received notification from Dr. Beasley that the patient was accepted into [facility]'s Psych Unit. She will call me back with more information.
--- NOTE | 2018-12-28 11:23 | NUR ---
*-* INSURANCE *-* ALL CLINICALS AND REVIEWS HAVE BEEN FAXED TO: [employer] PLEASE FAX THE REVIEW/CLINICAL P- [phone] X 1936 F- [phone]
--- NOTE | 2018-12-28 13:50 | NUR ---
NURSE NOTES: Received call from Rosetta, the nurse accepting the pt in [facility]. She called to get report and asked why we had not called her. I told her I was awaiting call from Doctor to confirm. Gave report to Rosetta who asked if patient was stable enough to be transferred to psych unit as it is not like a med surg. I contacted Trena, who stated she did not know about the transfer. Called Rosetta back and told her that Per MD, she wanted pt transferred to psych unit. She verbalized understanding and asked me to set up transportation. Called [facility]. ETA is [phone]
--- NOTE | 2018-12-28 15:55 | NUR ---
NURSE NOTES: Contacted Dr. Lopez informing him that the patient would be transferred to [facility]. MD lopez is ok with transfer. Order in place.
--- NOTE | 2018-12-28 21:14 | Cardiology Progress Note ---
Assessment/Plan Assessment/Plan remained confused no acute cardiac abnormalities Subjective Subjective the patient refused medications, he is agitated and confused Objective Last 24 Hour Vital Signs Date Time Temp Pulse Resp B/P (MAP) Pulse Ox O2 Delivery O2 Flow Rate FiO2 12/28/18 09:00 Room Air 12/28/18 08:37 111 12/28/18 08:00 115 12/28/18 08:00 98.6 111 19 95/59 (71) 94 12/28/18 04:00 98.7 77 17 84/61 (69) 97 12/28/18 04:00 97 12/28/18 00:00 117 12/28/18 00:00 98.1 129 18 89/56 (67) 99 General Appearance: agitated EENT: PERRL/EOMI Neck: JVD Rhythm: Afib Cardiovascular: tachycardia Respiratory/Chest: crackles/rales Abdomen: no organomegaly Extremities: moderate edema Intake and Output 12/27/18 12/28/18 19:00 07:00 Intake Total 960.0 ml Balance 960.0 ml Intake Oral 630 ml IV Total 330.0 ml # Voids 6 11 # Bowel Movements 1 Laboratory Tests Test 12/28/18 08:40 White Blood Count 9.2 K/UL (4.8-10.8) Red Blood Count 4.66 M/UL (4.70-6.10) L Hemoglobin 13.5 G/DL (14.2-18.0) L Hematocrit 41.3 % (42.0-52.0) L Mean Corpuscular Volume 89 FL (80-99) Mean Corpuscular Hemoglobin 29.0 PG (27.0-31.0) Mean Corpuscular Hemoglobin Concent 32.8 G/DL (32.0-36.0) Red Cell Distribution Width 14.0 % (11.6-14.8) Platelet Count 323 K/UL (150-450) Mean Platelet Volume 5.6 FL (6.5-10.1) L Neutrophils (%) (Auto) 62.1 % (45.0-75.0) Lymphocytes (%) (Auto) 27.4 % (20.0-45.0) Monocytes (%) (Auto) 7.7 % (1.0-10.0) Eosinophils (%) (Auto) 1.8 % (0.0-3.0) Basophils (%) (Auto) 0.9 % (0.0-2.0) Sodium Level 140 MMOL/L (136-145) Potassium Level 3.9 MMOL/L (3.5-5.1) Chloride Level 103 MMOL/L (98-107) Carbon Dioxide Level 27 MMOL/L (21-32) Anion Gap 10 mmol/L (5-15) Blood Urea Nitrogen 15 mg/dL (7-18) Creatinine 1.0 MG/DL (0.55-1.30) Estimat Glomerular Filtration Rate mL/min (>60) Glucose Level 139 MG/DL (74-106) H Calcium Level 9.5 MG/DL (8.5-10.1) Magnesium Level 2.0 MG/DL (1.8-2.4) Total Bilirubin 0.7 MG/DL (0.2-1.0) Aspartate Amino Transf (AST/SGOT) 24 U/L (15-37) Alanine Aminotransferase (ALT/SGPT) 27 U/L (12-78) Alkaline Phosphatase 76 U/L (46-116) Total Protein 8.7 G/DL (6.4-8.2) H Albumin 3.3 G/DL (3.4-5.0) L Globulin 5.4 g/dL Albumin/Globulin Ratio 0.6 (1.0-2.7) L Anita Whitt MD Dec 28, 2018 21:14
--- NOTE | 2018-12-28 22:11 | General Progress Note ---
Assessment/Plan Problem List: (1) MDD (major depressive disorder), recurrent episode ICD Codes: F33.9 - Major depressive disorder, recurrent, unspecified SNOMED: 204505152 (2) Anxiety disorder ICD Codes: F41.9 - Anxiety disorder, unspecified SNOMED: 258932503 Status: stable, progressing Assessment/Plan zyprexa klonopin 1mg po bid dw PMD transfer the pt to psych unit Subjective Constitutional: Reports: malaise, weakness Neurologic/Psychiatric: Reports: anxiety, depressed, emotional problems Allergies: Coded Allergies: No Known Allergies (Unverified , 12/23/18) Subjective the pt has suicidal ideation Objective Last 24 Hour Vital Signs Date Time Temp Pulse Resp B/P (MAP) Pulse Ox O2 Delivery O2 Flow Rate FiO2 12/28/18 09:00 Room Air 12/28/18 08:37 111 12/28/18 08:00 115 12/28/18 08:00 98.6 111 19 95/59 (71) 94 12/28/18 04:00 98.7 77 17 84/61 (69) 97 12/28/18 04:00 97 12/28/18 00:00 117 12/28/18 00:00 98.1 129 18 89/56 (67) 99 Intake and Output 12/27/18 12/28/18 19:00 07:00 Intake Total 960.0 ml Balance 960.0 ml Intake Oral 630 ml IV Total 330.0 ml # Voids 6 11 # Bowel Movements 1 Laboratory Tests 12/28/18 08:40: White Blood Count 9.2, Red Blood Count 4.66L, Hemoglobin 13.5L, Hematocrit 41.3L , Mean Corpuscular Volume 89, Mean Corpuscular Hemoglobin 29.0, Mean Corpuscular Hemoglobin Concent 32.8, Red Cell Distribution Width 14.0, Platelet Count 323, Mean Platelet Volume 5.6L, Neutrophils (%) (Auto) 62.1, Lymphocytes ( %) (Auto) 27.4, Monocytes (%) (Auto) 7.7, Eosinophils (%) (Auto) 1.8, Basophils (%) (Auto) 0.9, Sodium Level 140, Potassium Level 3.9, Chloride Level 103, Carbon Dioxide Level 27, Anion Gap 10, Blood Urea Nitrogen 15, Creatinine 1.0, Estimat Glomerular Filtration Rate , Glucose Level 139H, Calcium Level 9.5, Magnesium Level 2.0, Total Bilirubin 0.7, Aspartate Amino Transf (AST/SGOT) 24, Alanine Aminotransferase (ALT/SGPT) 27, Alkaline Phosphatase 76, Total Protein 8.7H, Albumin 3.3L, Globulin 5.4, Albumin/Globulin Ratio 0.6L Height (Feet): 5 Height (Inches): 6.00 Weight (Pounds): 175 General Appearance: WD/WN, no apparent distress, alert Neurologic: oriented x 3, responsive, depressed affect Kyara Beasley MD Dec 28, 2018 22:11
--- NOTE | 2018-12-29 15:08 | NUR ---
*-* INSURANCE *-* ALL CLINICALS AND REVIEWS HAVE BEEN FAXED TO: [employer] PLEASE FAX THE REVIEW/CLINICAL P- [phone] X 1936 F- [phone]
--- NOTE | 2019-01-01 13:15 | Discharge Summary ---
Discharge Summary Discharge Summary _ DATE OF ADMISSION: 12/23/2018 DATE OF DISCHARGE: 12/28/2018 DISCHARGED BY: Dr. Awa Mendoza CONSULTANTS: Dr. Dr. Kyara Mathew BRIEF HOSPITAL COURSE: Patient is a 78-year-old male, who was apparently brought to the hospital by EMS after hypoglycemic episode and transient hypotension. The patient has a history of type 2 diabetes, on insulin and peripheral vascular disease, status post amputation. He has history of hypertension. On evaluation at ED, EKG showed atrial fibrillation. Blood work did not show any leukocytosis. Hemoglobin and hematocrit were stable. Sodium normal, potassium 3.0. Protein was negative. ProBNP was elevated at 1730. Urinalysis showed 2+ protein, 1+ leukocyte esterase, 5-10 WBC. He was given IV digoxin due to rapid A. fib. He was then admitted for evaluation of A. fib, pneumonia and UTI. He was admitted to cardiac monitored floor. Commercial Service Technician was consulted. He was anticoagulated with Eliquis. Aspirin and Plavix was discontinued. Potassium was repleted. He was given IV diuresis.. Antihypertensives were titrated. He was given beta-blockers. Echocardiogram showed LVEF of 60%. Psychiatrist was consulted. Patient had anxiety disorder and had suicidal ideation. Trazodone was discontinued. He was given Zyprexa and Klonopin. Boarding care refused to take patient back. Blood culture was negative. Chest x-ray negative. MRI of the left foot did not show findings to suggest acute osteomyelitis. He was eventually transferred to [facility] psych unit. FINAL DIAGNOSES: New onset atrial fibrillation Urinary tract infection Pneumonia Major depressive disorder Anxiety disorder DISPOSITION: Patient was transferred to a psychiatric unit. DISCHARGE MEDICATIONS: Refer to Discharge Medication List. I have been assigned to complete a discharge summary on this account, I was not involved with the patient's management. Simran Cornell NP Jan 01, 2019 13:15
== END 2018-12-28 16:10 | disposition short-term general hospital (02) | DRG 194 ==
LOC: EDBD 15:22 → EMR 19:16 → EDBEDREQ 20:14 → 2E 20:54
DX: J18.9 Pneumonia, unspecified organism (principal); I50.30 Unspecified diastolic (congestive) heart failure; R45.851 Suicidal ideations; N39.0 Urinary tract infection, site not specified; E11.649 Type 2 diabetes mellitus with hypoglycemia without coma; I48.91 Unspecified atrial fibrillation; Z89.422 Acquired absence of other left toe(s); I11.0 Hypertensive heart disease with heart failure; E78.5 Hyperlipidemia, unspecified; Z79.02 Long term (current) use of antithrombotics/antiplatelets; Z79.4 Long term (current) use of insulin; E03.9 Hypothyroidism, unspecified; Z87.891 Personal history of nicotine dependence; Z79.01 Long term (current) use of anticoagulants; Z79.82 Long term (current) use of aspirin; F32.9 Major depressive disorder, single episode, unspecified; F41.9 Anxiety disorder, unspecified; Z89.431 Acquired absence of right foot
CPT/HCPCS: 36415; 71045; 71046; 80048; 80053; 80162; 80202; 81003; 82550; 82553; 82962; 83605; 83735; 83880; 84100; 84484; 85025; 87040; 87081; 93005; 93306; 96365; 96368; 96375; 99285; J8499; S5561